=== PATIENT | female | born 1975 | race Native Hawaiian/Other Pacific Islander ===

== ENCOUNTER → 2022-11-19 07:45 | Outpatient (CLI) | payer OTHER, SELFPAY ==
--- NOTE | 2022-11-19 | DI.US.S_ITS ---
PROCEDURE: US ABDOMEN COMPLETE INDICATIONS: EPIGASTRIC PAIN TECHNIQUE: Real-time scanning was performed of the abdominal and retroperitoneal organs, with image documentation. COMPARISON: None. FINDINGS: Liver: Liver measures 17.5 cm in length with diffusely increased echogenicity. Gallbladder: Gallbladder contains numerous small calcified shadowing gallstones and mild sludge. Gallbladder wall thickness is approximately 4 mm. No pericholecystic fluid. Sonographic Ascencio sign is negative. Biliary ducts: No intrahepatic biliary ductal dilatation. Common hepatic duct measures 5 mm in diameter. The common bile duct measures 8.6 mm in diameter. Pancreas: Visualized portions of the pancreas are sonographically normal. Spleen: Spleen is normal in size and homogeneous in echotexture. Kidneys: Kidneys are normal in size and echotexture. Right kidney measures 11.4 cm long; left kidney measures 12.1 cm long. No hydronephrosis. No solid masses. Small echogenic foci within the left renal sinus measuring up to 6 mm could represent nonobstructing calculi versus echogenic renal sinus fat. Aorta: Visualized aorta is normal in caliber at less than 3 cm. Iliacs: Proximal common iliac arteries are normal in caliber at less than 2.5 cm. IVC: Intrahepatic inferior vena cava is patent. Miscellaneous: No free abdominal fluid. IMPRESSION: 1. Increased hepatic echogenicity is seen, most commonly secondary to diffuse hepatic steatosis but other sources of hepatocellular disease cannot be excluded. Recommend clinical correlation. 2. Cholelithiasis with mild gallbladder wall thickening but no additional signs of acute cholecystitis. 3. Mildly dilated common bile duct measuring up to 9 mm in diameter. Recommend correlation with clinical findings and laboratory values to exclude biliary obstruction. MRCP could be performed for further evaluation of indicated clinically. 4. Echogenic foci in the left renal sinus could represent prominent renal sinus fat versus nonobstructing calculi. No hydronephrosis. Approved by: Aryan Harrison M.D. on 11/19/2022 at 10:22
== END ==
PROVIDERS: Referring Provider Internal Medicine; Visit Provider Internal Medicine
DX: K80.20 Calculus of gallbladder without cholecystitis without obstruction (principal); K83.8 Other specified diseases of biliary tract; R10.13 Epigastric pain; R14.0 Abdominal distension (gaseous)
CPT/HCPCS: 76700